=== PATIENT | male | born 1980 | race African-American/Black ===

== ENCOUNTER 2016-10-29 09:03 | Emergency (ER) | payer SELFPAY ==
[2016-10-29 11:00] LABS: BASOPHILS 0.5 % (0-2); EOSINOPHILS 4.3 % (0-7); HEMOGLOBIN 15.6 g/dL (13.5-17.5); IMMATURE GRANULOCYTES 0.2 % (0-5); LYMPHOCYTES 25.8 % (15-50); MCH 26.4 pg (26.0-34.0); MCHC 32.5 g/dL (31.0-37.0); MCV 81.4 fL (80.0-100.0); MEAN PLATELET VOLUME 10.2 fL (7.4-10.4); MONOCYTES 6.3 % (2-11); NEUTROPHILS 62.9 % (40-80); PLATELET COUNT 196 10x3/uL (130-400); RDW 14.6 % (11.5-14.5)
== END 2016-10-29 11:56 | disposition home or self-care (01) ==
LOC: D.ER 09:03
PROVIDERS: Physician Assistant
DX: K13.0 Diseases of lips (principal); J45.909 Unspecified asthma, uncomplicated

== ENCOUNTER 2018-08-11 12:47 | Emergency (ER) | payer SELFPAY ==
[~2018-08-11] VITALS: Ht 177.8 cm; Wt 90.9 kg
[2018-08-11 13:01] VITALS: Ht 177.8 cm; Wt 90.9 kg
[2018-08-11] MEDS ORDERED: AMOXICILLIN875 MG PO (15:33)
[2018-08-11 16:02] VITALS: BP 146/91
== END 2018-08-11 16:03 | disposition home or self-care (01) ==
LOC: D.ER 12:47
DX: J02.0 Streptococcal pharyngitis (principal)

== ENCOUNTER 2018-09-27 09:18 | Emergency (ER) | payer SELFPAY ==
[~2018-09-27] VITALS: Ht 177.8 cm; Wt 108.2 kg
[~2018-09-27 09:18] MED LIST: AMOXICILLIN875 MG PO
[2018-09-27 09:29] VITALS: Ht 177.8 cm; Wt 108.2 kg
[2018-09-27 09:55] LABS: BASOPHILS 0.8 % (0-2); EOSINOPHILS 9.2 % (0-7); HEMATOCRIT 44.5 % (42.0-54.0); IMMATURE GRANULOCYTES 0.2 % (0-5); LYMPHOCYTES 23.5 % (15-50); MCH 27.1 pg (26.0-34.0); MCHC 33.7 g/dL (31.0-37.0); MCV 80.5 fL (80.0-100.0); MEAN PLATELET VOLUME 10.5 fL (7.4-10.4); MONOCYTES 9.4 % (2-11); NEUTROPHILS 56.9 % (40-80); PLATELET COUNT 177 10x3/uL (130-400); RBC 5.53 10x6/uL (4.20-6.10); RDW 14.7 % (11.5-14.5); WBC 6.5 10x3/uL (4.8-10.8)
[2018-09-27 10:13] LABS: ALBUMIN 4.1 g/dL (3.4-5.0); ANION GAP 12.3 mmol/L (8-16); BILIRUBIN - TOTAL 0.62 mg/dL (0.2-1.3); CALCIUM 9.1 mg/dL (8.5-10.1); CARBON DIOXIDE 28.5 mmol/L (21.0-32.0); CREATININE - SERUM 1.3 mg/dL (0.6-1.3); POTASSIUM - SERUM 3.8 mmol/L (3.5-5.1); PROTEIN - SERUM 8.3 g/dL (6.4-8.2)
[2018-09-27] MEDS ORDERED: DOXYCYCLINE HY100 M2 PO (11:10)
[2018-09-27] MEDS ORDERED: PHENERGAN DM SYR5 ML PO (11:10)
[2018-09-27 11:32] VITALS: BP 132/78
== END 2018-09-27 11:35 | disposition home or self-care (01) ==
LOC: D.ER 09:18
PROVIDERS: Family Medicine
DX: J40 Bronchitis, not specified as acute or chronic (principal)

== ENCOUNTER 2018-11-18 20:26 | Emergency (ER) | payer SELFPAY ==
[2018-09-27 09:29] VITALS: BMI 34.2
[~2018-11-18 20:26] MED LIST changes: +DOXYCYCLINE HY100 M2 PO; +PHENERGAN DM SYR5 ML PO
== END 2018-11-18 20:44 | disposition left against medical advice (07) ==
LOC: D.ER 20:26
DX: R11.2 Nausea with vomiting, unspecified (principal); R19.7 Diarrhea, unspecified

== ENCOUNTER 2019-05-11 10:28 | Emergency (ER) | payer SELFPAY ==
[~2019-05-11] VITALS: Ht 177.8 cm; Wt 103.0 kg
[2019-05-11 10:42] VITALS: Ht 177.8 cm; Wt 103.0 kg
[2019-05-11 12:03] VITALS: BP 161/106
== END 2019-05-11 12:05 | disposition home or self-care (01) ==
LOC: D.ER 10:28
DX: J02.9 Acute pharyngitis, unspecified (principal); Z72.0 Tobacco use; J45.909 Unspecified asthma, uncomplicated; Z79.51 Long term (current) use of inhaled steroids

== ENCOUNTER 2019-05-15 05:39 | Emergency (ER) | payer SELFPAY ==
[~2019-05-15] VITALS: Ht 177.8 cm; Wt 102.5 kg
[2019-05-15 05:44] VITALS: Ht 177.8 cm; Wt 102.5 kg
[2019-05-15 06:08] LABS: BASOPHILS 0.7 % (0-2); EOSINOPHILS 0.5 % (0-7); HEMATOCRIT 46.5 % (42.0-54.0); HEMOGLOBIN 15.1 g/dL (13.5-17.5); IMMATURE GRANULOCYTES 0.3 % (0-5); LYMPHOCYTES 23.5 % (15-50); MCH 26.8 pg (26.0-34.0); MCHC 32.5 g/dL (31.0-37.0); MCV 82.4 fL (80.0-100.0); MEAN PLATELET VOLUME 10.9 fL (7.4-10.4); MONOCYTES 6.8 % (2-11); NEUTROPHILS 68.2 % (40-80); RBC 5.64 10x6/uL (4.20-6.10); RDW 15.2 % (11.5-14.5); WBC 7.4 10x3/uL (4.8-10.8)
[2019-05-15 06:28] LABS: PLATELET COUNT 271 10x3/uL (130-400)
[2019-05-15 06:36] LABS: CALC OSMOLALITY 283 mosm/kg (275-300); CALCIUM 9.3 mg/dL (8.5-10.1); CARBON DIOXIDE 19.7 mmol/L (21.0-32.0); CHLORIDE - SERUM 101 mmol/L (98-107); CREATININE - SERUM 1.8 mg/dL (0.6-1.3); POTASSIUM - SERUM 3.5 mmol/L (3.5-5.1); SODIUM 140 mmol/L (136-145); UREA NITROGEN 9 mg/dL (7-18); eGFR NON AFRICAN AMERICAN 44 mL/min (90-120)
[2019-05-15 06:37] LABS: UDS - AMPHET POSITIVE QUAL (NEGATIVE); UDS - BARB NEGATIVE QUAL (NEGATIVE); UDS - BENZO NEGATIVE QUAL (NEGATIVE); UDS - COCAINE NEGATIVE QUAL (NEGATIVE); UDS - OPIATE NEGATIVE QUAL (NEGATIVE); UDS - PCP NEGATIVE QUAL (NEGATIVE); UDS - THC POSITIVE QUAL (NEGATIVE)
[2019-05-15 06:43] LABS: GLUCOSE 211 mg/dL (74-106)
[2019-05-15 06:50] LABS: ALBUMIN 4.1 g/dL (3.4-5.0); ALKALINE PHOSPHATASE 75 U/L (46-116); ALT (SGPT) 53 U/L (10-68); BILIRUBIN - TOTAL 0.44 mg/dL (0.2-1.3); CKMB 1.7 U/L (0.0-3.6); MAGNESIUM - SERUM 2.1 mg/dL (1.8-2.4)
[2019-05-15 06:56] LABS: TROPONIN-I < 0.017 ng/mL (0.000-0.060)
[2019-05-15 07:06] LABS: APPEARANCE HAZY (CLEAR); COLOR YELLOW (YELLOW); GLUCOSE NEGATIVE (NEGATIVE); KETONE NEGATIVE (NEGATIVE); NITRITE NEGATIVE (NEGATIVE); PROTEIN 1+ mg/dL (NEGATIVE); SPECIFIC GRAVITY 1.015 (1.005-1.020)
[2019-05-15 07:07] LABS: BACTERIA FEW /hpf (NEGATIVE); BILIRUBIN NEGATIVE (NEGATIVE); EPITHELIAL CELLS OCC /hpf (0-5); MUCUS <1+ /lpf (NONE SEEN); RED CELLS - URINE RARE /hpf (0-5); SPERMATOZOA PRESENT /hpf (NONE SEEN); WHITE CELLS - URINE NSEEN /hpf (NEGATIVE)
[2019-05-15 08:30] VITALS: BP 145/80
== END 2019-05-15 08:30 | disposition home or self-care (01) ==
LOC: D.ER 05:39
PROVIDERS: Family Medicine
DX: F19.159 Other psychoactive substance abuse with psychoactive substance-induced psychotic disorder, unspecified (principal); N28.9 Disorder of kidney and ureter, unspecified; J45.909 Unspecified asthma, uncomplicated; Z72.0 Tobacco use

== ENCOUNTER 2019-05-16 23:57 | Emergency (ER) | payer SELFPAY ==
[~2019-05-16] VITALS: Ht 177.8 cm; Wt 113.6 kg
[2019-05-17 00:07] VITALS: Ht 177.8 cm; Wt 113.6 kg
[2019-05-17 00:15] LABS: BASOPHILS 0.6 % (0-2); EOSINOPHILS 1.5 % (0-7); HEMATOCRIT 45.8 % (42.0-54.0); HEMOGLOBIN 14.8 g/dL (13.5-17.5); LYMPHOCYTES 29.5 % (15-50); MCH 26.2 pg (26.0-34.0); MCHC 32.3 g/dL (31.0-37.0); MCV 81.1 fL (80.0-100.0); MEAN PLATELET VOLUME 10.4 fL (7.4-10.4); MONOCYTES 6.8 % (2-11); NEUTROPHILS 61.6 % (40-80); PLATELET COUNT 245 10x3/uL (130-400); RBC 5.65 10x6/uL (4.20-6.10); RDW 15.2 % (11.5-14.5); WBC 6.6 10x3/uL (4.8-10.8)
[2019-05-17 00:24] LABS: CALC OSMOLALITY 276 mosm/kg (275-300); CALCIUM 9.2 mg/dL (8.5-10.1); CHLORIDE - SERUM 102 mmol/L (98-107); CREATININE - SERUM 1.3 mg/dL (0.6-1.3); GLUCOSE 123 mg/dL (74-106); POTASSIUM - SERUM 3.4 mmol/L (3.5-5.1); SODIUM 139 mmol/L (136-145); UREA NITROGEN 8 mg/dL (7-18)
[2019-05-17 00:25] LABS: CARBON DIOXIDE 25.6 mmol/L (21.0-32.0); eGFR NON AFRICAN AMERICAN 65 mL/min (90-120)
[2019-05-17 00:40] LABS: ALBUMIN 4.1 g/dL (3.4-5.0); ALKALINE PHOSPHATASE 72 U/L (46-116); ALT (SGPT) 49 U/L (10-68); BILIRUBIN - TOTAL 0.54 mg/dL (0.2-1.3); CREATINE KINASE 881 UL (21-232); MAGNESIUM - SERUM 1.9 mg/dL (1.8-2.4); PROTEIN - SERUM 8.9 g/dL (6.4-8.2); TROPONIN-I < 0.017 ng/mL (0.000-0.060)
[2019-05-17 02:44] VITALS: BP 155/89
== END 2019-05-17 02:44 | disposition home or self-care (01) ==
LOC: D.ER 23:57
PROVIDERS: Family Medicine
DX: F19.19 Other psychoactive substance abuse with unspecified psychoactive substance-induced disorder (principal); J45.909 Unspecified asthma, uncomplicated

== ENCOUNTER 2019-05-30 15:49 | Emergency (ER) | payer SELFPAY ==
[~2019-05-30] VITALS: Ht 177.8 cm; Wt 95.5 kg
[2019-05-30 15:56] VITALS: Ht 177.8 cm; Wt 95.5 kg
[2019-05-30 16:29] LABS: BASOPHILS 0.5 % (0-2); EOSINOPHILS 4.6 % (0-7); HEMATOCRIT 46.7 % (42.0-54.0); HEMOGLOBIN 15.4 g/dL (13.5-17.5); IMMATURE GRANULOCYTES 0.2 % (0-5); MCH 26.6 pg (26.0-34.0); MCV 80.8 fL (80.0-100.0); MEAN PLATELET VOLUME 10.2 fL (7.4-10.4); MONOCYTES 7.8 % (2-11); NEUTROPHILS 46.9 % (40-80); PLATELET COUNT 218 10x3/uL (130-400); RBC 5.78 10x6/uL (4.20-6.10); RDW 15.2 % (11.5-14.5); WBC 5.9 10x3/uL (4.8-10.8)
[2019-05-30 16:34] LABS: CALC OSMOLALITY 278 mosm/kg (275-300); CALCIUM 9.8 mg/dL (8.5-10.1); CARBON DIOXIDE 29.2 mmol/L (21.0-32.0); CHLORIDE - SERUM 103 mmol/L (98-107); CREATININE - SERUM 1.1 mg/dL (0.6-1.3); GLUCOSE 88 mg/dL (74-106); POTASSIUM - SERUM 4.2 mmol/L (3.5-5.1); SODIUM 141 mmol/L (136-145); UREA NITROGEN 11 mg/dL (7-18); eGFR NON AFRICAN AMERICAN 78 mL/min (90-120)
[2019-05-30 16:48] LABS: ALBUMIN 3.9 g/dL (3.4-5.0); ALKALINE PHOSPHATASE 68 U/L (46-116); ALT (SGPT) 51 U/L (10-68); BILIRUBIN - TOTAL 0.49 mg/dL (0.2-1.3); CKMB 0.8 U/L (0.0-3.6); CREATINE KINASE 301 UL (21-232); PROTEIN - SERUM 8.2 g/dL (6.4-8.2)
[2019-05-30 16:53] LABS: TROPONIN-I < 0.017 ng/mL (0.000-0.060)
[2019-05-30] MEDS ORDERED: NITROSTAT0.4 MG SL (19:21)
[2019-05-30 19:50] VITALS: BP 107/68
== END 2019-05-30 19:50 | disposition home or self-care (01) ==
LOC: D.ER 15:49
PROVIDERS: Emergency Medicine
DX: G82.20 Paraplegia, unspecified (principal); L97.929 Non-pressure chronic ulcer of unspecified part of left lower leg with unspecified severity; L97.919 Non-pressure chronic ulcer of unspecified part of right lower leg with unspecified severity; R11.0 Nausea; R42 Dizziness and giddiness; F15.11 Other stimulant abuse, in remission; I10 Essential (primary) hypertension; Z72.0 Tobacco use; J45.909 Unspecified asthma, uncomplicated

== ENCOUNTER 2019-07-10 13:24 | Emergency (ER) | payer MEDICAID ==
[~2019-07-10] VITALS: Ht 177.8 cm; Wt 100.0 kg
[~2019-07-10 13:24] MED LIST changes: +NITROSTAT0.4 MG SL
[2019-07-10 13:37] VITALS: Ht 177.8 cm; Wt 100.0 kg
[2019-07-10 14:58] LABS: BASOPHILS 1.6 % (0-2); EOSINOPHILS 13.4 % (0-7); HEMATOCRIT 46.8 % (42.0-54.0); HEMOGLOBIN 15.7 g/dL (13.5-17.5); IMMATURE GRANULOCYTES 0.2 % (0-5); LYMPHOCYTES 32.4 % (15-50); MCH 26.7 pg (26.0-34.0); MCHC 33.5 g/dL (31.0-37.0); MCV 79.7 fL (80.0-100.0); MEAN PLATELET VOLUME 10.2 fL (7.4-10.4); MONOCYTES 8.9 % (2-11); NEUTROPHILS 43.5 % (40-80); RBC 5.87 10x6/uL (4.20-6.10); RDW 14.4 % (11.5-14.5); WBC 5.7 10x3/uL (4.8-10.8)
[2019-07-10 15:00] LABS: PLATELET COUNT 172 10x3/uL (130-400)
[2019-07-10 15:13] LABS: ANION GAP 10.2 mmol/L (8-16); CALCIUM 8.9 mg/dL (8.5-10.1); CARBON DIOXIDE 29.7 mmol/L (21.0-32.0); CREATININE - SERUM 1.3 mg/dL (0.6-1.3); POTASSIUM - SERUM 3.9 mmol/L (3.5-5.1)
[2019-07-10 15:19] LABS: ALBUMIN 3.6 g/dL (3.4-5.0); BILIRUBIN - TOTAL 0.4 mg/dL (0.2-1.3); PROTEIN - SERUM 8.3 g/dL (6.4-8.2)
[2019-07-10] MEDS ORDERED: MEDROL DOSE PACK4 MG PO (16:01)
[2019-07-10] MEDS ORDERED: ZPAK PO (16:01)
[2019-07-10] MEDS ORDERED: COMBIVENT RESPIM4 GM INH (16:01)
[2019-07-10] MEDS ORDERED: TESSALON PERLE100 MG PO (16:01)
[2019-07-10 16:18] VITALS: BP 149/90
== END 2019-07-10 16:24 | disposition home or self-care (01) ==
LOC: D.ER 13:24
PROVIDERS: Emergency Medicine
DX: J40 Bronchitis, not specified as acute or chronic (principal); J45.909 Unspecified asthma, uncomplicated; I10 Essential (primary) hypertension